=== PATIENT | male | born 1985 | race Caucasian/White ===

== ENCOUNTER 2017-02-01 15:09 | Observation (INO) | payer OTHER ==
[~2017-02-01] VITALS: Ht 167.6 cm; Wt 58.9 kg
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
[2017-02-01 15:35] LABS: BASOPHIL # 0.1 K/uL (0.0-0.2); BASOPHIL % 0.6 %; EOSINOPHIL # 0.1 K/uL (0.0-0.5); EOSINOPHIL % 0.4 %; HEMATOCRIT 39.4 % (37.0-53.0); IMMATURE GRANULOCYTE # 0.1 K/uL (0.0-0.3); IMMATURE GRANULOCYTE % 0.4 %; LYMPHOCYTE # 1.6 K/uL (0.8-4.0); LYMPHOCYTE % 7.9 %; MCH 32.6 pg (27.0-34.0); MCHC 35.5 gm/dL (32.0-36.5); MCV 91.6 fl (83.0-98.0); MONOCYTE # 0.9 K/uL (0.0-1.0); MONOCYTE % 4.6 %; MPV 9.1 fl (9.4-12.4); NEUTROPHIL # (ANC) 16.9 K/uL (1.4-9.0); NEUTROPHIL % 86.1 %; NRBC % 0 /100WBC (0-0.00); PLATELET COUNT 295 K/uL (150-450); RDW-CV 12.2 % (11.9-14.6)
[2017-02-01 15:36] LABS: WBC 19.6 K/uL (4.0-11.0)
[2017-02-01 15:43] LABS: INR - (THERAPEUTIC) 1.03 (0.92-1.07); PROTIME 10.8 SECONDS (9.8-11.4); PTT 25 SECONDS (25-32)
[2017-02-01 15:50] LABS: ANION GAP 9.4 (10.0-19.0); BLOOD UREA NITROGEN 11 mg/dL (6-24); CALCIUM 8.3 mg/dL (8.5-10.5); CHLORIDE 108 mMol/L (96-110); CO2 26 mMol/L (22-32); CREATININE 1.2 mg/dL (0.6-1.3); ESTIMATED GFR (MDRD EQUATION) > 60; POTASSIUM 3.4 mMol/L (3.7-5.1); SODIUM 140 mMol/L (135-145)
[2017-02-01 15:52] LABS: PHOSPHORUS 1.5 mg/dL (2.5-4.9)
[2017-02-01 20:48] LABS: BILIRUBIN URINE NEGATIVE (NEGATIVE); BLOOD URINE 25 /UL (NEGATIVE); COLOR URINE YELLOW (YELLOW); GLUCOSE URINE NEGATIVE (NEGATIVE); KETONE URINE NEGATIVE (NEGATIVE); LEUKOCYTES URINE NEGATIVE /UL (NEGATIVE); NITRITE URINE NEGATIVE (NEGATIVE); PROTEIN URINE NEGATIVE (NEGATIVE); SPEC GRAVITY URINE 1.015 (1.003-1.035); TURBIDITY URINE CLEAR (CLEAR); UROBILINOGEN URINE NORMAL (NORMAL)
[2017-02-01 20:56] LABS: RBC URINE 0-2 #/HPF (NEGATIVE); WBC URINE 0-2 #/HPF (NEGATIVE)
[2017-02-01 20:57] LABS: BACTERIA URINE NEGATIVE (NEGATIVE); EPITHELIAL URINE NEGATIVE #/HPF (NEGATIVE)
[2017-02-02 01:14] LABS: CPK 105 IU/L (35-332)
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
[2017-02-02 06:25] LABS: BASOPHIL # 0.1 K/uL (0.0-0.2); BASOPHIL % 0.6 %; EOSINOPHIL # 0.2 K/uL (0.0-0.5); EOSINOPHIL % 1.9 %; HEMATOCRIT 37.9 % (37.0-53.0); HEMOGLOBIN 13.2 g/dL (12.0-17.0); IMMATURE GRANULOCYTE % 0.2 %; LYMPHOCYTE # 2.1 K/uL (0.8-4.0); LYMPHOCYTE % 20.7 %; MCH 32.4 pg (27.0-34.0); MCHC 34.8 gm/dL (32.0-36.5); MCV 93.1 fl (83.0-98.0); MONOCYTE # 0.9 K/uL (0.0-1.0); MONOCYTE % 9.5 %; MPV 9.2 fl (9.4-12.4); NEUTROPHIL # (ANC) 6.7 K/uL (1.4-9.0); NEUTROPHIL % 67.1 %; NRBC % 0 /100WBC (0-0.00); PLATELET COUNT 266 K/uL (150-450); RBC 4.07 M/uL (4.00-6.00); RDW-CV 12.5 % (11.9-14.6); WBC 9.9 K/uL (4.0-11.0)
[2017-02-02 06:37] LABS: ALBUMIN 3.5 gm/dL (3.5-5.0); ALK PHOS 72 IU/L (33-138); ALT 99 IU/L (12-78); ANION GAP 10.9 (10.0-19.0); AST 123 IU/L (10-40); BLOOD UREA NITROGEN 10 mg/dL (6-24); CALCIUM 7.8 mg/dL (8.5-10.5); CHLORIDE 110 mMol/L (96-110); CO2 25 mMol/L (22-32); ESTIMATED GFR (MDRD EQUATION) > 60; POTASSIUM 3.9 mMol/L (3.7-5.1); SODIUM 142 mMol/L (135-145); TOTAL BILIRUBIN 1.1 mg/dL (0.0-1.5); TOTAL PROTEIN 6.2 g/dL (6.0-8.4)
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
[2017-02-02] MEDS ORDERED: TYLENOL EXTRA500 MG PO (13:20)
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
== END 2017-02-02 15:40 | disposition disaster alternative care site (69) ==
LOC: GACC 15:09 → GICU 16:46
PROVIDERS: Emergency Medicine; ADMIT Surgery
DX: S09.90XA Unspecified injury of head, initial encounter (principal); S37.39XA Other injury of urethra, initial encounter; Z88.0 Allergy status to penicillin; Z91.041 Radiographic dye allergy status; V89.2XXA Person injured in unspecified motor-vehicle accident, traffic, initial encounter; Y92.411 Interstate highway as the place of occurrence of the external cause
CPT/HCPCS: G0378; G0480; J2250; J2270; J2405; J3010; J7120; Q0164